=== PATIENT | male | born 1935 | race African-American/Black ===

== ENCOUNTER 2022-05-05 17:06 | Emergency (ER) | payer BC ==
[~2022-05-05] VITALS: Ht 175.3 cm; Wt 97.0 kg
[~2022-05-05 17:06] MED LIST: TEST200V16 IM
[2022-05-05 17:15] VITALS: BP 160/64
[2022-05-05] MEDS ORDERED: DIPH25CA83 MT (21:26)
== END 2022-05-05 21:47 | disposition home or self-care (01) ==
LOC: ER 17:06
DX: G47.00 Insomnia, unspecified (principal); E11.9 Type 2 diabetes mellitus without complications; I10 Essential (primary) hypertension
CPT/HCPCS: 99283